=== PATIENT | female | born 1955 | race Caucasian/White ===

== ENCOUNTER 2019-09-28 21:23 | Emergency (ER) | payer BC, OTHER ==
[~2019-09-28] VITALS: Ht 157.5 cm; Wt 60.7 kg
[2019-09-28] MEDS ORDERED: DEXTROSE 50% 25 GM / 50ML DISP.SYRIN. IV ONE ×2 (21:56→23:00)
[2019-09-28 22:24] LABS: BASO # 0.1 x10^3/uL (0.0-0.2); BASO % 1 % (0-3); EOS # 0.3 x10^3/uL (0.0-0.7); EOS % 3 % (0-3); HEMATOCRIT 36.9 % (36.0-47.0); HEMOGLOBIN 12.5 g/dL (12.0-15.5); LYMPH # 2.4 x10^3/uL (1.0-4.8); LYMPH % 23 % (24-48); MEAN CORPUSCULAR HEMOGLOBIN 29 pg (25-35); MEAN CORPUSCULAR HGB CONC 34 g/dL (31-37); MEAN CORPUSCULAR VOLUME 87 fL (79-100); MONO # 1.3 x10^3/uL (0.0-1.1); MONO % 13 % (0-9); NEUT # 6.2 x10^3uL (1.8-7.7); NEUT % 60 % (31-73); PLATELET COUNT 523 x10^3/uL (140-400); RED BLOOD COUNT 4.25 x10^6/uL (3.50-5.40); RED CELL DISTRIBUTION WIDTH 14.2 % (11.5-14.5); WHITE BLOOD COUNT 10.3 x10^3/uL (4.0-11.0)
[2019-09-28 22:30] LABS: CALCIUM 9.7 mg/dL (8.5-10.1); GFR 56.2; POTASSIUM 3.8 mmol/L (3.5-5.1)
[2019-09-28 22:35] LABS: ALBUMIN 4.2 g/dL (3.4-5.0); ALBUMIN/GLOBULIN RATIO 1.1 (1.0-1.7); TOTAL BILIRUBIN 0.2 mg/dL (0.2-1.0); TOTAL PROTEIN 7.9 g/dL (6.4-8.2)
--- NOTE | 2019-09-28 22:50 | EKG ---
[address] [address] Test Date: 2019-09-28 Test Time: 22:43:36 Pat Name: LINUS MONDRAGON Department: Room: Gender: F [employer] Instructor: : [id number] Requested By: MAGALIS SALDIVAR Order Number: [id number] Reading MD: Measurements Intervals [place] Rate: 82 P: 56 DE: 180 QRS: -12 QRSD: 86 T: 44 QT: 358 QTc: 421 Interpretive Statements SINUS RHYTHM LEFTWARD AXIS QRS(T) CONTOUR ABNORMALITY CONSISTENT WITH ANTEROSEPTAL INFARCT PROBABLY OLD ABNORMAL ECG RI6.02 No previous ECG available for comparison
--- NOTE | 2019-09-28 23:11 | RAD ---
EXAM: CT Head without IV contrast CLINICAL HISTORY: Reason: Altered mental status, confusionz COMPARISON: None. TECHNIQUE: Routine CT of the head without contrast. Soft tissues and bone windows were reviewed. PQRS compliance statement - One or more of the following individualized dose reduction techniques were utilized for this study: 1. Automated exposure control 2. Adjustment of the mA and/or kV according to patient size 3. Use of iterative reconstruction technique FINDINGS: There is no evidence of hemorrhage, mass or extra-axial fluid collection. Heterogeneous low-attenuation in the medial left temporal lobe likely from subacute or chronic infarct. Superimposed acute infarct is not excluded and can be further assessed with MRI if clinically indicated. There is no mass effect or shift of the intracranial structures. The ventricles, basilar cisterns and cortical sulci are normal in size and configuration for the patients stated age. The cerebellum and brainstem are unremarkable. The calvarium demonstrates no evidence of fracture or focal lesion. There is normal aeration of the visualized paranasal sinuses and mastoid air cells. The visualized portions of the orbits are normal. Atherosclerotic calcifications of the intracranial internal carotid and vertebral arteries is seen. IMPRESSION: Heterogeneous low-attenuation in the medial left temporal lobe likely from subacute or chronic infarct. Superimposed acute infarct is not excluded and can be further assessed with MRI if clinically indicated. Electronically signed by: Dariusz Darden MD (09/28/2019 11:08 PM) [facility]
--- NOTE | 2019-09-28 23:12 | RAD ---
CHEST PA LATERAL Technique: PA and lateral views of the chest were obtained. Clinical History: Reason: Congestion, cough / Spl. Instructions: / History: Cough and congestion Comparison: None. Findings: The heart and pulmonary vasculature appear within normal limits. The lungs are clear. The pleural margins are clear. Impression: No acute chest process is seen. Electronically signed by: Ashvin Kincaid III, MD (09/28/2019 11:09 PM) [id number]
[2019-09-28 23:16] LABS: BACTERIA,URINE MANY /HPF (0-FEW); BILIRUBIN,URINE NEG (NEG); CLARITY,URINE HAZY; COLOR,URINE YELLOW; GLUCOSE,URINE >=1000 mg/dL (NEG); NITRITE,URINE POS (NEG); RBC,URINE 0 /HPF (0-2); UROBILINOGEN,URINE 0.2 mg/dL (0.2 mg/dL); WBC,URINE 20-40 /HPF (0-4)
[2019-09-28 23:17] LABS: SQUAMOUS EPITHELIAL CELL,UR FEW /LPF
[2019-09-28] MEDS ORDERED: ASPIRIN CHEWABLE 81 MG TABLET. PO ONE (23:45)
--- NOTE | 2019-09-28 23:54 | PHYS DOC ---
Past History Past Medical History: Diabetes, Hypertension, Other Additional Past Medical Histor: insulin dependent Past Surgical History: No Surgical History Alcohol Use: None General Adult EDM: Chief Complaint: ALTERED MENTAL STATUS HPI: HPI: Patient is a 63-year-old female presenting to the ED with chief complaint of altered mental status. Patient's blood sugar in the ER was 43. Patient was given D5 immediately. Family is also brought back and states that patient has not been herself for the last 5 days to 1 week. They state that patient does not remember whether she took her medications or not. They also state that patient has increased forgetfulness in the last few days. Patient also complained of chest pain has been present for 3 days. Patient does admit to being an active smoker. Review of Systems: Review of Systems: Constitutional: Denies fever or chills Eyes: Denies change in visual acuity HENT: Denies nasal congestion or sore throat Respiratory: Denies cough or shortness of breath Cardiovascular: Complains of chest pain GI: Denies abdominal pain, nausea, vomiting, bloody stools or diarrhea : Denies dysuria Musculoskeletal: Denies back pain or joint pain Integument: Denies rash Neurologic: Family states that patient has altered mental status Heart Score: Risk Factors: Risk Factors: DM, Current or recent (<one month) smoker, HTN, HLP, family history of CAD, obesity. Risk Scores: Score 0 - 3: 2.5% MACE over next 6 weeks - Discharge Home Score 4 - 6: 20.3% MACE over next 6 weeks - Admit for Clinical Observation Score 7 - 10: 72.7% MACE over next 6 weeks - Early Invasive Strategies Current Medications: Current Meds: Current Medications Medications (Trade) Dose Ordered Sig/[facility] Start Time Stop Time Status Last Admin Dose Admin Aspirin (Aspirin Chewable) 324 mg 1X ONCE 09/28/19 23:45 09/28/19 23:46 DC Dextrose (Dextrose 50%-Water Syringe) 25 gm 1X ONCE 09/28/19 23:00 09/28/19 23:01 DC 09/28/19 21:58 25 GM Allergies: Allergies: Allergies Coded Allergies Type Severity Reaction Last Updated Verified No Known Drug Allergies 09/28/19 No Physical Exam: PE: Constitutional: Well developed, well nourished, no acute distress, non-toxic appearance. [] HENT: Normocephalic, atraumatic Eyes: EOMI Neck: Normal range of motion, Supple Cardiovascular:Heart rate regular rhythm Lungs & Thorax: Bilateral rhonchi Abdomen: Bowel sounds normal, soft, no tenderness Extremities: No tenderness, ROM intact Neurologic: Alert and oriented X 3 Current Patient Data: Labs: Laboratory Tests Test 09/28/19 21:57 09/28/19 22:18 09/28/19 22:42 White Blood Count 10.3 x10^3/uL (4.0-11.0) Red Blood Count 4.25 x10^6/uL (3.50-5.40) Hemoglobin 12.5 g/dL (12.0-15.5) Hematocrit 36.9 % (36.0-47.0) Mean Corpuscular Volume 87 fL (79-100) Mean Corpuscular Hemoglobin 29 pg (25-35) Mean Corpuscular Hemoglobin Concent 34 g/dL (31-37) Red Cell Distribution Width 14.2 % (11.5-14.5) Platelet Count 523 x10^3/uL (140-400) H Neutrophils (%) (Auto) 60 % (31-73) Lymphocytes (%) (Auto) 23 % (24-48) L Monocytes (%) (Auto) 13 % (0-9) H Eosinophils (%) (Auto) 3 % (0-3) Basophils (%) (Auto) 1 % (0-3) Neutrophils # (Auto) 6.2 x10^3uL (1.8-7.7) Lymphocytes # (Auto) 2.4 x10^3/uL (1.0-4.8) Monocytes # (Auto) 1.3 x10^3/uL (0.0-1.1) H Eosinophils # (Auto) 0.3 x10^3/uL (0.0-0.7) Basophils # (Auto) 0.1 x10^3/uL (0.0-0.2) Sodium Level 137 mmol/L (136-145) Potassium Level 3.8 mmol/L (3.5-5.1) Chloride Level 98 mmol/L (98-107) Carbon Dioxide Level 29 mmol/L (21-32) Anion Gap 10 (6-14) Blood Urea Nitrogen 30 mg/dL (7-20) H Creatinine 1.0 mg/dL (0.6-1.0) Estimated GFR (Cockcroft-Gault) 56.2 BUN/Creatinine Ratio 30 (6-20) H Glucose Level 47 mg/dL (70-99) L Glucose (Fingerstick) 43 mg/dL (70-99) L 131 mg/dL (70-99) H Calcium Level 9.7 mg/dL (8.5-10.1) Total Bilirubin 0.2 mg/dL (0.2-1.0) Aspartate Amino Transferase (AST) 19 U/L (15-37) Alanine Aminotransferase (ALT) 22 U/L (14-59) Alkaline Phosphatase 94 U/L (46-116) Troponin I Quantitative < 0.017 ng/mL (0-0.055) Total Protein 7.9 g/dL (6.4-8.2) Albumin 4.2 g/dL (3.4-5.0) Albumin/Globulin Ratio 1.1 (1.0-1.7) Urine Collection Type Unknown Urine Color Yellow Urine Clarity Hazy Urine pH 6.0 Urine Specific [place] 1.015 Urine Protein Neg (NEG-TRACE) Urine Glucose (UA) >=1000 mg/dL (NEG) Urine Ketones (Stick) Neg mg/dL (NEG) Urine Blood Neg (NEG) Urine Nitrite Pos (NEG) Urine Bilirubin Neg (NEG) Urine Urobilinogen Dipstick 0.2 mg/dL (0.2 mg/dL) Urine Leukocyte Esterase Mod (NEG) Urine RBC 0 /HPF (0-2) Urine WBC 20-40 /HPF (0-4) Urine Squamous Epithelial Cells Few /LPF Urine Bacteria Many /HPF (0-FEW) Vital Signs: Vital Signs Date Time Temp Pulse Resp B/P (MAP) Pulse Ox O2 Delivery O2 Flow Rate FiO2 09/28/19 22:18 88 18 155/70 (98) 100 Room Air 09/28/19 21:40 98.4 EKG: EKG: EKG interpretation: 22: 43 on 09/28/2019 HR: 82 Sinus rhythm Regular intervals Leftward axis Nonspecific ST changes Radiology/Procedures: Radiology/Procedures: [] Impressions: Chest x-ray does not show any acute disease. CT of the head shows subacute infarct. Course & Med Decision Making: Course & Med Decision Making Pertinent Labs and Imaging studies reviewed. (See chart for details) Repeat blood glucose is 131. Patient is currently alert and oriented x3. CT head shows that patient has subacute infarct. MRI is recommended. Labs are within normal limits. Troponin is negative. Discussed results and plan of care with patient and family. Due to possible CVA, patient will be transferred to [facility] for further evaluation and treatment. UA shows UTI. IV abx given in ED. I discussed case with hospitalist Dr. Bermudez who accepts admission. Lucila Disclaimer: Lucila Disclaimer: This electronic medical record was generated, in whole or in part, using a voice recognition dictation system. Departure Departure: Impression: Primary Impression: CVA (cerebral vascular accident) Additional Impressions: Chest pain UTI (urinary tract infection) Disposition: 05 TRANSFER OTHER Condition: GUARDED Referrals: SELVIN RINCON MD (PCP) MAGALIS SALDIVAR DO Sep 28, 2019 23:54
[2019-09-29] MEDS ORDERED: cefTRIAXone SODIUM 1 GM VIAL ONE (02:12)
[2019-09-29] MEDS ORDERED: IV NORMAL SALINE 50ML 50 ML ONE (02:12)
[2019-09-29 02:40] VITALS: BP 187/84
== END 2019-09-29 02:48 | disposition short-term general hospital (02) ==
LOC: ER 21:23
DX: I63.9 Cerebral infarction, unspecified (principal); R07.9 Chest pain, unspecified; N39.0 Urinary tract infection, site not specified; E11.9 Type 2 diabetes mellitus without complications; I10 Essential (primary) hypertension; F17.200 Nicotine dependence, unspecified, uncomplicated; Z79.4 Long term (current) use of insulin
CPT/HCPCS: 36415; 70450; 71046; 80053; 81001; 82947; 84484; 85025; 87086; 93005; 96365; 96375; 99285; J0696

== ENCOUNTER → 2021-03-06 | Outpatient (CLI) | payer BC ==
--- NOTE | 2021-03-07 14:52 | RAD ---
INDICATION : Routine Screening. COMPARISON: Multiple priors including February 2018 TECHNIQUE: Standard mammogram screening views of the bilateral breasts were obtained. CAD was utilize d. FINDINGS: The breasts are scattered density. No definite suspicious mass. IMPRESSION: BI-RADS Category 2: Benign findings. Recommend repeat screening exam in one year. The patient was placed into the recall system with a suggested recall date for follow up imaging. Mammography is the most sensitive method for finding small breast cancers, but it does not detect the m all and is not a substitute for careful clinical examination. A negative mammogram does not negate a clinically suspicious finding and should not result in delay in biopsying a clinically suspicious abnormality. Electronically signed by: Johnny Alves MD (03/07/2021 2:50 PM) [id number]
== END ==
LOC: MAMMO 10:23
PROVIDERS: ATTEND Internal Medicine
DX: Z12.31 Encounter for screening mammogram for malignant neoplasm of breast (principal)
CPT/HCPCS: 77067